=== PATIENT | male | born 1965 | race Caucasian/White ===

== ENCOUNTER 2019-01-26 09:51 | Observation (INO) | payer BC ==
[2019-01-26] MEDS ORDERED: ASPIRIN 81 MG PO STA (10:10)
--- NOTE | 2019-01-26 10:36 | ED ---
Chest Pain HPI - General Source: patient, RN notes reviewed Mode of arrival: ambulatory Limitations: no limitations <Wale Valentino - Last Filed: 01/26/19 13:58> <Clarissa Sims - Last Filed: 01/30/19 23:40> - General Chief Complaint: Chest Pain Stated Complaint: chest & arm pain Time Seen by Provider: 01/26/19 10:09 - History of Present Illness Initial Comments: This 73-year-old male presents emergency Department chief complaint of extremity pain, chest pain. Patient states that he developed sharp right-sided chest pain that is worse with deep inspiration and he feels slightly short of breath. Patient states she's never had pain like this in the past. He states he has no health problems but does not go to your primary care physician a regular basis. He is a former smoker quit 3 years ago. Patient states that he does not know any history of hypertension, hyperlipidemia or diabetes does admit that he's been having extremity pain, numbness and tingling has been progressively worsening. Patient states he also has noticed that he has had increased thirst. Patient denies any recent lab work. Patient denies any prior cardiac disease. (Wale Valentino) - Related Data Home Medications Medication Instructions Recorded Confirmed Advil Back And Body 2 tab PO HS 01/26/19 01/26/19 Ibuprofen [Motrin] 600 mg PO DAILY PRN 01/26/19 01/26/19 Previous Rx's Medication Instructions Recorded amLODIPine [Norvasc] 5 mg PO DAILY 30 Days #30 tab 01/27/19 Allergies Allergy/AdvReac Type Severity Reaction Status Date / Time No Known Allergies Allergy Verified 01/26/19 10:55 Review of Systems ROS Other: All systems not noted in ROS Statement are negative. <Wale Valentino - Last Filed: 01/26/19 13:58> ROS Other: All systems not noted in ROS Statement are negative. <Clarissa Sims - Last Filed: 01/30/19 23:40> ROS Statement: Those systems with pertinent positive or pertinent negative responses have been documented in the HPI. EKG Findings - EKG Comments: EKG Findings:: EKG interpreted by me, performed at 10:10 normal sinus rhythm rate of 67 WV 144 QRS 102 QT/QTC 372/[address] elevation or depression, normal axis. <Wale Valentino - Last Filed: 01/26/19 13:58> Past Medical History Past Medical History: No Reported History History of Any Multi-Drug Resistant Organisms: None Reported Past Surgical History: No Surgical Hx Reported Past Psychological History: No Psychological Hx Reported Smoking Status: Former smoker Past Alcohol Use History: None Reported Past Drug Use History: None Reported <Wale Valentino - Last Filed: 01/26/19 13:58> General Exam Limitations: no limitations General appearance: alert, in no apparent distress Head exam: Present: atraumatic, normocephalic, normal inspection Eye exam: Present: normal appearance, PERRL, EOMI. Absent: scleral icterus, conjunctival injection, periorbital swelling ENT exam: Present: normal exam, mucous membranes moist Neck exam: Present: normal inspection, full ROM. Absent: tenderness, meningismus, lymphadenopathy Respiratory exam: Present: normal lung sounds bilaterally, chest wall tenderness (Mild right-sided). Absent: respiratory distress, wheezes, rales, rhonchi, stridor Cardiovascular Exam: Present: regular rate, normal rhythm, normal heart sounds. Absent: systolic murmur, diastolic murmur, rubs, gallop, clicks GI/Abdominal exam: Present: soft, normal bowel sounds. Absent: distended, tenderness, guarding, rebound, rigid Neurological exam: Present: alert, oriented X3, CN II-XII intact, reflexes normal. Absent: motor sensory deficit Skin exam: Present: warm, dry, intact, normal color. Absent: rash <Wale Valentino - Last Filed: 01/26/19 13:58> Course Vital Signs 01/26/19 01/26/19 01/26/19 09:54 14:16 14:53 Temperature 98.1 F 98.0 F 98.2 F Pulse Rate 94 89 72 Respiratory 17 16 20 Rate Blood Pressure 156/96 161/104 O2 Sat by Pulse 99 98 97 Oximetry Chest Pain [facility] <Wale Valentino - Last Filed: 01/26/19 13:58> <Tylor Simsah Lul - Last Filed: 01/30/19 23:40> - [facility] EKG labs, chest x-ray and CT were obtained there is findings of COPD changes, patient is mildly hypertensive, normal troponin at this time. Patient has multiple risk factors for cardiac disease. Patient will be admitted for repeat troponin, cardiology evaluation will be started on heparin. (Wale Valentino) I was available for consultation in the emergency department. The history and physical exam were done by the midlevel provider. I was consulted for this patients care. I reviewed the case with the midlevel provider and based on their presentation of the patient, I agree with the assessment, medical decision making and plan of care as documented. I evaluated the patient myself and agree to hospital admission. Chart was dictated using [employer] dictation software. Attempts were made to correct any dictation errors however some typographical errors may persist. (Clarissa Sims) Disposition <Wale Valentino - Last Filed: 01/26/19 13:58> <Clarissa Sims - Last Filed: 01/30/19 23:40> Clinical Impression: Chest pain, COPD (chronic obstructive pulmonary disease) Disposition: ADMITTED IP TO THIS HOSP Condition: Stable
[2019-01-26 10:44] LABS: Basophils # (A) 0.1 k/uL (0-0.2); Basophils % (A) 1 %; Eosinophils # (A) 0.1 k/uL (0-0.7); Eosinophils % (A) 1 %; HCT 47.1 % (39.0-53.0); HGB 15.1 gm/dL (13.0-17.5); Lymphocytes # (A) 1.3 k/uL (1.0-4.8); Lymphocytes % (A) 15 %; MCH 27.7 pg (25.0-35.0); MCHC 32.1 g/dL (31.0-37.0); MCV 86.3 fL (80.0-100.0); Mean Platelet Volume 7.3; Monocytes # (A) 0.4 k/uL (0-1.0); Monocytes % (A) 4 %; Neutrophils # (A) 7.1 k/uL (1.3-7.7); Neutrophils % (A) 78 %; Platelet Count 331 k/uL (150-450); RBC 5.45 m/uL (4.30-5.90); RDW 13.6 % (11.5-15.5)
--- NOTE | 2019-01-26 10:53 | XR ---
EXAMINATION TYPE: XR chest 2V DATE OF EXAM: 01/26/2019 COMPARISON: 12/29/2010 TECHNIQUE: PA and lateral views submitted. HISTORY: Chest pain and cough FINDINGS: A preinflation suggests COPD. Could not exclude a less than 5% right apical pneumothorax. No overt fa ilure or pleural effusion. Heart size normal. Surgical clips in the abdomen. Vertebral body height ma intained. No consolidative pneumonia. IMPRESSION: 1. COPD. Cannot exclude a tiny less than 5% right apical pneumothorax correlate clinically.
[2019-01-26 10:58] LABS: ALT 25 U/L (21-72); AST 36 U/L (17-59); African American GFR (CKD) >90 (>60 ml/min/1.73 sqM); Albumin 4.7 g/dL (3.5-5.0); Alkaline Phosphatase 93 U/L (38-126); Anion Gap 13 mmol/L; Blood Urea Nitrogen 13 mg/dL (9-20); Calcium 10.2 mg/dL (8.4-10.2); Carbon Dioxide 22 mmol/L (22-30); Chloride 104 mmol/L (98-107); Glucose 107 mg/dL (74-99); Magnesium 2.2 mg/dL (1.6-2.3); Potassium 4.4 mmol/L (3.5-5.1); Sodium 139 mmol/L (137-145); Total Bilirubin 0.7 mg/dL (0.2-1.3); Total Protein 7.9 g/dL (6.3-8.2)
[2019-01-26 11:59] LABS: Partial Thromboplastin Time 26.2 sec (22.0-30.0); Prothrombin Time 10.3 sec (9.0-12.0)
[2019-01-26 12:04] LABS: D-Dimer 0.61 mg/L FEU (<0.60)
--- NOTE | 2019-01-26 13:21 | CT ---
EXAMINATION TYPE: CT chest angio for PE DATE OF EXAM: 01/26/2019 COMPARISON: CT chest 12/20/2010 HISTORY: chest pain / elevated d dimer CT DLP: 303.2 mGycm Automated exposure control for dose reduction was used. CONTRAST: CT Chest for pulmonary embolism performed with with IV Contrast, patient injected with 100 mL of Isov ue 370. Rudimentary reconstructions performed on an alternate workstation. FINDINGS: LUNGS: The lungs are grossly clear, there is no concerning parenchymal mass or nodule identified. A pical bullous disease likely accounts for the plain film finding. Small subpleural ground glass nodul e on axial image 40 measures 4 mm the right upper lobe. Some dependent atelectatic changes are presen t. Scattered moderate emphysematous changes are present. There is no pleural effusion or pneumothorax seen. The tracheobronchial tree is patent. MEDIASTINUM: There is satisfactory enhancement of the pulmonary artery and its branches, there is no CT evidence for pulmonary embolism. There are no greater than 1 cm hilar or mediastinal lymph nodes. No pericardial effusion is seen. AORTA: No additional significant abnormality is seen. OTHER: There is reflux of contrast material into the hepatic veins and inferior vena cava. Nonobstru ctive left renal calculus is partially visualized measuring 3 to 4 mm midpole. IMPRESSION: Emphysema. Reflux of contrast into the inferior vena cava and hepatic veins, correlate for possible r ight heart failure. Left nephrolithiasis.
[2019-01-26] MEDS ORDERED: NITROGLYCERIN SL TABS 0.4 MG TAB SUBLINGUAL PRN (13:59)
[2019-01-26] MEDS ORDERED: HEPARIN SODIUM,PORCINE 5,000 UNIT/ML 1 ML VIAL IV ONE (13:59)
[2019-01-26] MEDS ORDERED: HEPARIN SOD,PORK IN 0.45% NACL 25,000 UNIT in 0.45% NACL 1 250ML.BAG IV SCH (14:00)
[2019-01-26] MEDS ORDERED: ONDANSETRON 4 MG/2 ML VIAL IVP PRN (14:38)
[2019-01-26] MEDS ORDERED: ACETAMINOPHEN TAB 325 MG TAB PO PRN (14:38)
--- NOTE | 2019-01-26 14:39 | P.HPIM ---
History of Present Illness H&P Date: 01/26/19 Chief Complaint: chest pain This is a 53-year-old male patient who presented with complaints of chest pain. Patient reports of the chest pain started yesterday. Patient reports the feeling as sharp right-sided chest pain that is worse with deep inspiration. 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 Patient reports feeling has medical history ex-smoker in which he quit 3 years ago. Patient reports he does not follow regularly with his PCP. Patient reports that his father at 38 of massive heart attack. Chest x-ray was completed showing COPD cannot exclude a tiny less than 5% right apical pneumo correlate clinically. CTA of the chest completed showing emphysema reflux of contrast into the inferior vena cava and hepatic veins correlate for possible right heart failure left nephrolithiasis. EKG completed showing normal sinus rhythm. BNP 35 and troponin negative. Patient started on heparin drip cardiology services have been consulted. Serial troponins have been ordered. At this time patient denies shortness of breath. Patient denies nausea vomiting or diarrhea. Patient denies any urinary burning or frequency. Review of Systems Please refer to HPI otherwise unremarkable Past Medical History Past Medical History: No Reported History History of Any Multi-Drug Resistant Organisms: None Reported Past Surgical History: No Surgical Hx Reported Past Psychological History: No Psychological Hx Reported Smoking Status: Former smoker Past Alcohol Use History: None Reported Past Drug Use History: None Reported Medications and Allergies Home Medications Medication Instructions Recorded Confirmed Type Advil Back And Body 2 tab PO HS 01/26/19 01/26/19 History Ibuprofen [Motrin] 600 mg PO DAILY PRN 01/26/19 01/26/19 History Allergies Allergy/AdvReac Type Severity Reaction Status Date / Time No Known Allergies Allergy Verified 01/26/19 10:55 Physical Exam Vitals: Vital Signs Temp Pulse Resp BP Pulse Ox 01/26/19 14:16 98.0 F 89 16 98 01/26/19 09:54 98.1 F 94 17 156/96 99 Intake and Output 01/25/19 01/26/19 01/26/19 22:59 06:59 14:59 Other: Weight 68.81 kg Head normocephalic Neck supple Lungs clear to auscultation bilaterally no wheezing or crackles Heart regular rate and rhythm S1-S2, no rub or gallop Abdomen is soft nontender nondistended positive bowel sounds no hepatosplenomegaly Extremities no edema Neuro alert and orientated to 3 Results CBC & Chem 7: 01/26/19 10:25 01/26/19 10:25 Labs: Abnormal Lab Results - Last 24 Hours (Table) 01/26/19 01/26/19 Range/Units 10:25 11:10 D-Dimer 0.61 H (<0.60) mg/L FEU Glucose 107 H (74-99) mg/dL Assessment and Plan Assessment: 1. Chest pain. CT of the chest showing emphysema. Reflux of contrast into the very inferior vena cava and hepatic veins correlate for possible right heart failure. Left nephrolithiasis. Initial troponin negative. Patient started on heparin drip. Cardiology service is consulted. Troponins ordered 2. Ex-smoker. Patient quit 3 years prior 3. Family history of coronary artery disease patient reports that father at age 38 from [place] Time with Patient: Greater than 30 (Greater than 60% of the total time spent in counseling and coordination of care. I performed an examination of the patient and discussed their management with the Nurse Practitioner. I have reviewed the Nurse Practitioner's notes and agree with the documented findings and plan of care)
[2019-01-26 15:10] VITALS: BMI 25.2
[2019-01-26] MEDS: amLODIPine 5 MG TAB PO SCH (16:11)
--- NOTE | 2019-01-26 16:27 | P.CNPUL ---
History of Present Illness Consult date: 01/26/19 Requesting physician: Solis Gong Reason for consult: chest pain Chief complaint: Right-sided chest pain History of present illness: Assessment 53-year-old white male patient of Dr. Gong with no significant medical history other than former smoker, patient smoked one to 2 packs a day for 50 years, quit smoking 3 years ago. Occasional marijuana use in the past. No EtOH history. Patient presented to the emergency department on 01/26/2019 for evaluation of right upper chest pain, which was intensified with deep inspiration and coughing. His symptoms started yesterday in the morning, and the onset was acute in nature, he reports dry cough, and pain in his right upper chest, that felt like significant soreness. He also reports pain in his right arm. No fever or chills, occasional cough which is dry, no chest congestion, no wheezing. Patient also reports some increased thirst and dry mouth, has some numbness and tingling in his right arm. No swelling in the right arm or lower extremities. he takes occasional Advil or Motrin for body aches and pains. 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 EKG was done on arrival showing normal sinus rhythm, with no ST elevation or depression. Chest x-ray showed COPD, and the possibility of less than 5% right apical pneumothorax, no evidence of consolidative pneumonia. Lab work showed CBC and electrolytes and renal profile within normal limits, d-dimer was 0.61, troponin negative 1, proBNP was 35. CT chest angiogram showed emphysema, apical bullous disease, small subpleural groundglass nodule in the right upper lobe. No pleural effusion or pneumothorax was seen. No evidence of pulmonary embolism, no greater than 1 cm hilar or mediastinal lymph nodes, no pericardial effusion. Also showed nonobstructing left nephrolithiasis. Patient was started on heparin infusion and cardiology has been in to evaluate the patient, and is planning on proceeding with a stress test tomorrow Review of Systems All systems: negative Constitutional: Denies chills, Denies fever Eyes: denies blurred vision, denies pain Ears, nose, mouth and throat: Denies headache, Denies sore throat Cardiovascular: Denies chest pain, Denies shortness of breath Respiratory: Reports cough Gastrointestinal: Denies abdominal pain, Denies diarrhea, Denies nausea, Denies vomiting Musculoskeletal: Reports arm numbness/tingling, Denies myalgias Integumentary: Denies pruritus, Denies rash Neurological: Denies numbness, Denies weakness Psychiatric: Denies anxiety, Denies depression Endocrine: Denies fatigue, Denies weight change Past Medical History Past Medical History: GERD/Reflux, GI Bleed Additional Past Medical History / Comment(s): Upper GI bleed, gastric ulcer, pt states for approximately one year he has had joint pain-multiple sites and low back pain. History of Any Multi-Drug Resistant Organisms: None Reported Past Surgical History: Cholecystectomy Additional Past Surgical History / Comment(s): R hand fracture with surgery/p ins-pt thinks pins have since been removed but not sure, R antecubital injury from broken glass as 11 yr old-surgical intervention for tendons/nerves, EGD, vasectomy. Past Anesthesia/Blood Transfusion Reactions: No Reported Reaction Additional Past Anesthesia/Blood Transfusion Reaction / Comment(s): Pt thinks he may have received blood after R antecubital injury as a 11 yr old child. Smoking Status: Former smoker - Past Family History Father Family Medical History: Myocardial Infarction (PA) Additional Family Medical History / Comment(s): Father at the age of 34yrs from a massive PA. Mother Family Medical History: Cancer Additional Family Medical History / Comment(s): Mother had ovarian and breast cancer. Medications and Allergies Home Medications Medication Instructions Recorded Confirmed Type Advil Back And Body 2 tab PO HS 01/26/19 01/26/19 History Ibuprofen [Motrin] 600 mg PO DAILY PRN 01/26/19 01/26/19 History Allergies Allergy/AdvReac Type Severity Reaction Status Date / Time No Known Allergies Allergy Verified 01/26/19 10:55 Physical Exam Vitals: Vital Signs Temp Pulse Pulse Resp BP BP Pulse Ox 01/26/19 15:29 98 F 73 157/99 98 01/26/19 14:53 98.2 F 72 20 161/104 97 01/26/19 14:16 98.0 F 89 16 98 01/26/19 09:54 98.1 F 94 17 156/96 99 Intake and Output 01/26/19 01/26/1919 06:59 14:59 22:59 Other: Weight 68.81 kg GENERAL EXAM: Alert, pleasant, 53-year-old white male, comfortable in no apparent distress. HEAD: Normocephalic/atraumatic. EYES: Normal reaction of pupils, equal size. Conjunctiva pink, sclera white. NOSE: Clear with pink turbinates. THROAT: No erythema or exudates. NECK: No masses, no JVD, no thyroid enlargement, no adenopathy. CHEST: No chest wall deformity. Symmetrical expansion. Patient reports some right upper chest discomfort with deep inspiration LUNGS: Diminished air entry with no crackles, wheeze, rhonchi or dullness. CVS: Regular rate and rhythm, normal S1 and S2, no gallops, no murmurs, no rubs ABDOMEN: Soft, nontender. No hepatosplenomegaly, normal bowel sounds, no guarding or rigidity. EXTREMITIES: No clubbing, no edema, no cyanosis, 2+ pulses and upper and lower extremities. MUSCULOSKELETAL: Muscle strength and tone normal. SPINE: No scoliosis or deformity SKIN: No rashes CENTRAL NERVOUS SYSTEM: Alert and oriented -3. No focal deficits, tone is normal in all 4 extremities. PSYCHIATRIC: Alert and oriented -3. Appropriate affect. Intact judgment and insight. Results - Laboratory Findings CBC and BMP: 01/26/19 10:25 01/26/19 10:25 PT/INR, D-dimer PT 10.3 sec (9.0-12.0) 01/26/19 11:10 INR 1.0 (<1.2) 01/26/19 11:10 D-Dimer 0.61 mg/L FEU (<0.60) H 01/26/19 11:10 Abnormal lab findings: Abnormal Labs 01/26/19 01/26/19 10:25 11:10 D-Dimer 0.61 H Glucose 107 H - Diagnostic Findings Chest x-ray: report reviewed, image reviewed CT scan - chest: report reviewed, image reviewed Assessment and Plan Plan: Assessment: #1. Right-sided chest pain with deep inspiration and coughing, rule out cardiac etiology #2. Possible small 5% right apical pneumothorax, however the CTA chest did not confirm presence of pneumothorax but apical bullous disease #3. Mildly elevated d-dimer, 0.61, no evidence of pulmonary embolism on the CTA chest, no pulmonary masses, no greater than 1 cm hilar or mediastinal adenopathy. #4. COPD/emphysema, CTA chest showed apical bullous disease #5. Small subpleural groundglass nodule measuring 4 mm in the right upper lobe #6. Previous history of GI bleeding in the past #7. Osteoarthritis #8. Former history of tobacco use, early in remission for the last 3 years, used to smoke 1-2 packs a day for 50 years #9. Family history of coronary artery disease, patient's father at age of 38 from myocardial infarction Plan: Chest x-ray and CTA chest has been reviewed, CTA chest showed no evidence of pulmonary embolism, but apical bullous emphysema, which probably accounted for appearance of small pneumothorax on the chest x-ray. Presently comfortable, no acute distress, still has some right chest discomfort with deep inspiration, coughing, or wheezing, COPD does not seem to be active. Cardiology is following and plan an on doing a stress test, so far the troponin is negative, EKG without any acute ischemic changes. Vital signs are stable. Patient will need outpatient follow-up, after discharge and will need outpatient PFT. The hemodynamically stable, breathing is stable, continue to follow I performed a history & physical examination of the patient and discussed their management with my nurse practitioner, Desire Morel. I reviewed the nurse practitioner's note and agree with the documented findings and plan of care. Lung sounds are positive for diminished breath sounds. The findings and the impression was discussed with the patient. I attest to the documentation by the nurse practitioner. Time with Patient: Greater than 30
--- NOTE | 2019-01-26 19:35 | ECHOF ---
Referral Reason:chest pain MEASUREMENTS -------- HEIGHT: 165.1 cm WEIGHT: 68.5 kg BP: RVIDd: 3.2 cm (< 3.3) IVSd: 1.3 cm (0.6 - 1.1) LVIDd: 3.5 cm (3.9 - 5.3) LVPWd: 1.2 cm (0.6 - 1.1) IVSs: 1.4 cm LVIDs: 3.6 cm LVPWs: 1.3 cm LA Diam: 2.6 cm (2.7 - 3.8) LAESV Index (A-L): 20.66 ml/m Ao Diam: 3.4 cm (2.0 - 3.7) AV Cusp: 1.9 cm (1.5 - 2.6) LA Diam: 3.0 cm (2.7 - 3.8) MV EXCURSION: 14.317 mm (> 18.000) MV EF SLOPE: 77 mm/s (70 - 150) EPSS: 0.4 cm MV E Munir: 0.54 m/s MV DecT: 155 ms MV A Munir: 0.71 m/s MV E/A Ratio: 0.76 RAP: 5.00 mmHg RVSP: 25.39 mmHg FINDINGS -------- Sinus rhythm. This was a technically good study. The left ventricular size is normal. There is mild concentric left ventricular hypertrophy. Overa ll left ventricular systolic function is normal with, an EF between 55 - 60 %. The right ventricle is normal in size. The left atrial size is normal. Normal LA size by volume 22+/-6 ml/m2. The right atrial size is normal. The aortic valve is trileaflet, and appears structurally normal. No aortic stenosis or regurgitation. Mild mitral annular calcification present. Mild mitral regurgitation is present. Mild tricuspid regurgitation present. Right ventricular systolic pressure is normal at < 35 mmHg. There is no evidence of pulmonary hypertension. There is no pulmonic regurgitation present. The aortic root size is normal. There is no pericardial effusion. CONCLUSIONS -------- 1. Sinus rhythm. 2. This was a technically good study. 3. The left ventricular size is normal. 4. There is mild concentric left ventricular hypertrophy. 5. Overall left ventricular systolic function is normal with, an EF between 55 - 60 %. 6. The right ventricle is normal in size. 7. The left atrial size is normal. 8. Normal LA size by volume 22+/-6 ml/m2. 9. The right atrial size is normal. 10. The aortic valve is trileaflet, and appears structurally normal. No aortic stenosis or regurgitat ion. 11. Mild mitral annular calcification present. 12. Mild mitral regurgitation is present. 13. Mild tricuspid regurgitation present. 14. Right ventricular systolic pressure is normal at < 35 mmHg. 15. There is no evidence of pulmonary hypertension. 16. There is no pulmonic regurgitation present. 17. The aortic root size is normal. 18. There is no pericardial effusion. CYLINDER PRESS OPERATOR APPRENTICE: Yani Armando RDCS
[2019-01-26 20:22] VITALS: RESP 18
[2019-01-27] MEDS ORDERED: HEPARIN SOD,PORK IN 0.45% NACL PMX 25,000 UNIT/250 ML BAG IV ONE (01:45)
[2019-01-27] MEDS ORDERED: HEPARIN SODIUM,PORCINE 5,000 UNIT/ML 1 ML VIAL ONE (01:45)
[2019-01-27 08:14] LABS: ALT 27 U/L (21-72); AST 25 U/L (17-59); African American GFR (CKD) >90 (>60 ml/min/1.73 sqM); Albumin 4.2 g/dL (3.5-5.0); Alkaline Phosphatase 82 U/L (38-126); Anion Gap 7 mmol/L; Blood Urea Nitrogen 17 mg/dL (9-20); Calcium 9.9 mg/dL (8.4-10.2); Carbon Dioxide 27 mmol/L (22-30); Chloride 104 mmol/L (98-107); Cholesterol 182 mg/dL (<200); Glucose 108 mg/dL (74-99); HDL Cholesterol 80 mg/dL (40-60); LDL Cholesterol,Calculated 86 mg/dL (0-99); Potassium 4.6 mmol/L (3.5-5.1); Sodium 138 mmol/L (137-145); Total Bilirubin 0.4 mg/dL (0.2-1.3); Total Protein 7.4 g/dL (6.3-8.2); Triglycerides 82 mg/dL (<150)
[2019-01-27 08:20] LABS: Basophils # (A) 0.1 k/uL (0-0.2); Basophils % (A) 1 %; Eosinophils # (A) 0.2 k/uL (0-0.7); Eosinophils % (A) 3 %; HCT 50.3 % (39.0-53.0); HGB 15.9 gm/dL (13.0-17.5); Lymphocytes # (A) 1.8 k/uL (1.0-4.8); Lymphocytes % (A) 25 %; MCH 27.9 pg (25.0-35.0); MCHC 31.7 g/dL (31.0-37.0); MCV 88.2 fL (80.0-100.0); Mean Platelet Volume 8.5; Monocytes # (A) 0.4 k/uL (0-1.0); Monocytes % (A) 6 %; Neutrophils # (A) 4.4 k/uL (1.3-7.7); Neutrophils % (A) 63 %; Platelet Count 315 k/uL (150-450); RBC 5.71 m/uL (4.30-5.90); RDW 13.8 % (11.5-15.5)
--- NOTE | 2019-01-27 08:33 | XR ---
EXAMINATION TYPE: XR chest 2V DATE OF EXAM: 01/27/2019 COMPARISON: Prior chest x-ray 01/26/[address] 01/26/2019 HISTORY: Right-sided chest pain TECHNIQUE: Frontal and lateral views of the chest are obtained. FINDINGS: There are overlying cardiac leads. There is no focal air space opacity, pleural effusion, or pneumothorax seen. The cardiac silhouette size is within normal limits. The osseous structures are intact. Apical scarring present at the right lung apex. Prominent lung lines compatible with unde rlying COPD. IMPRESSION: No acute cardiopulmonary process.
[2019-01-27] MEDS ORDERED: FAMOTIDINE 20 MG TAB PO SCH (09:00)
[2019-01-27] MEDS ORDERED: ASPIRIN 81 MG PO SCH (09:00)
[2019-01-27] MEDS ORDERED: ASPIRIN 325 MG TAB PO SCH (09:00)
--- NOTE | 2019-01-27 09:58 | P.CRDCN ---
History of Present Illness History of present illness: This is a pleasant 53-year-old male past medical history significant for gastroesophageal reflux disease, upper GI bleed, gastric ulcer and former nicotine dependence. He quit smoking 3 years ago. He also has a history of alcoholism and has been sober for 10 years. He denies prior history of coronary artery disease and does not follow with a acupuncturist for any reason. His father did suffer a heart attack causing in his 30s. We have this to see him in consultation secondary to chest discomfort. He states for the last 2 days has been having a sharp pain in the right anterior chest wall that is worse with deep inspiration, movement of his right arm or coughing. He has been dry coughing for 2 days as well. He has no nasal drainage, sputum production or fever at home. The pain is reproducible on palpation. He denies associated shortness of breath, dizziness, nausea, vomiting, palpitations or diaphoresis. The discomfort does not radiate to the back, arm, neck or jaw. EKG reveals sinus mechanism with no acute ST or T wave abnormalities noted. Chest x-ray on admission is negative for an acute cardiopulmonary process with the possibility of a right upper lobe pneumothorax. CTA of the chest was obtained revealing emphysema with an apical bullous likely accounting for the plain film findings, small subpleural groundglass nodule on the axial images the right upper lobe, reflux of contrast into the inferior vena cava and hepatic veins and left nephrolithiasis. Repeat chest x-ray this morning reveals underlying COPD. Echocardiogram obtained reveals preserved LV systolic function with ejection fraction 55-60%. Laboratory data reviewed, cardiac enzymes negative 3. He takes no daily cardiac medications. At the time of my exam: CONSTITUTIONAL: Denies fever. Denies chills. EYES: Denies blurred vision. Denies vision changes. Denies eye pain. EARS, NOSE, MOUTH & THROAT: Denies headache. Denies sore throat. Denies ear pain. CARDIOVASCULAR: Complains of right-sided pleuritic chest pain. Denies shortness of breath. Denies orthopnea. Denies PND. Denies palpitations. RESPIRATORY: Complains of cough. GASTROINTESTINAL: Denies abdominal pain. Denies diarrhea. Denies constipation. Denies nausea. Denies vomiting. MUSCULOSKELETAL: Denies myalgias. INTEGUMENTARY: Denies pruitis. Denies rash. NEUROLOGIC: Denies numbness. Denies tingling. Denies weakness. PSYCHIATRIC: Denies anxiety. Denies depression. ENDOCRINE: Denies fatigue. Denies weight change. Denies polydipsia. Denies polyurina. GENITOURINARY: Denies burning, hematuria or urgency with micturation. HEMATOLOGIC: Denies history of anemia. Denies bleeding. Blood pressure 137/87 heart rate 62 afebrile maintaining oxygen saturation on room air GENERAL: This is a 53-year-old male in no apparent distress at the time of my examination. HEENT: Head is atraumatic, normocephalic. Pupils are equal, round. Sclerae anicteric. Conjunctivae are clear. Mucous membranes of the mouth are moist. Neck is supple. There is no jugular venous distention. No carotid bruit is heard. LUNGS: Clear to auscultation no wheezes, rales or rhonchi. No chest wall tenderness is noted on palpation or with deep breathing. HEART: Regular rate and rhythm without murmurs, rubs or gallops. S1 and S2 heard. ABDOMEN: Soft, nontender. Bowel sounds are heard. No organomegaly noted. EXTREMITIES: No evidence of peripheral edema and no calf tenderness noted. VASCULAR: Radial and dorsalis pedis pulses palpated, no evidence of clubbing. NEUROLOGIC: Patient is awake, alert and oriented x3. ASSESSMENT Chest pain, pleuritic. Atypical for angina. An acute coronary event has been ruled out. Significant family history of premature coronary artery disease Former nicotine dependence PLAN An acute coronary event has been ruled out. Symptoms are atypical to be related to underlying coronary artery disease however the patient does have significant family history. Therefore we will pursue stress echocardiogram to assess for stress-induced ischemia. Thank you kindly for this consultation. Nurse Practitioner note has been reviewed, I agree with a documented findings and plan of care. Patient was seen and examined. Past Medical History Past Medical History: GERD/Reflux, GI Bleed Additional Past Medical History / Comment(s): Upper GI bleed, gastric ulcer, pt states for approximately one year he has had joint pain-multiple sites and low back pain. History of Any Multi-Drug Resistant Organisms: None Reported Past Surgical History: Cholecystectomy Additional Past Surgical History / Comment(s): R hand fracture with surgery/pins-pt thinks pins have since been removed but not sure, R antecubital injury from broken glass as 11 yr old-surgical intervention for tendons/nerves, EGD, vasectomy. Past Anesthesia/Blood Transfusion Reactions: No Reported Reaction Additional Past Anesthesia/Blood Transfusion Reaction / Comment(s): Pt thinks he may have received blood after R antecubital injury as a 11 yr old child. Smoking Status: Former smoker - Past Family History Father Family Medical History: Myocardial Infarction ([place]) Additional Family Medical History / Comment(s): Father at the age of 34yrs from a massive [place]. Mother Family Medical History: Cancer Additional Family Medical History / Comment(s): Mother had ovarian and breast cancer. Medications and Allergies Home Medications Medication Instructions Recorded Confirmed Type Advil Back And Body 2 tab PO HS 01/26/19 01/26/19 History Ibuprofen [Motrin] 600 mg PO DAILY PRN 01/26/19 01/26/19 History Allergies Allergy/AdvReac Type Severity Reaction Status Date / Time No Known Allergies Allergy Verified 01/26/19 10:55 Physical Exam Vitals: Vital Signs Temp Pulse Pulse Resp BP BP BP 01/27/19 07:25 97.7 F 62 18 137/87 01/26/19 20:00 98.0 F 71 18 155/95 01/26/19 19:35 61 20 01/26/19 15:29 98 F 73 157/99 01/26/19 14:53 98.2 F 72 20 161/104 01/26/19 14:16 98.0 F 89 16 01/26/19 09:54 98.1 F 94 17 156/96 Pulse Ox 01/27/19 07:25 98 01/26/19 20:00 95 01/26/19 19:35 01/26/19 15:29 98 01/26/19 14:53 97 01/26/19 14:16 98 01/26/19 09:54 99 Intake and Output 01/26/19 01/27/19 01/27/19 22:59 06:59 14:59 Other: # Voids 1 Results 01/27/19 06:30 01/27/19 06:30 Cardiac Enzymes 01/26/19 01/26/19 01/26/19 Range/Units 10:25 10:25 16:24 AST 36 (17-59) U/L Troponin I <0.012 <0.012 (0.000-0.034) ng/mL 01/26/19 Range/Units 21:56 AST (17-59) U/L Troponin I <0.012 (0.000-0.034) ng/mL Coagulation 01/26/19 01/26/19 Range/Units 11:10 21:56 PT 10.3 (9.0-12.0) sec APTT 26.2 34.8 H (22.0-30.0) sec CBC 01/26/19 Range/Units 10:25 WBC 9.0 (3.8-10.6) k/uL RBC 5.45 (4.30-5.90) m/uL Hgb 15.1 (13.0-17.5) gm/dL Hct 47.1 (39.0-53.0) % Plt Count 331 (150-450) k/uL Comprehensive Metabolic Panel 01/26/19 Range/Units 10:25 Sodium 139 (137-145) mmol/L Potassium 4.4 (3.5-5.1) mmol/L Chloride 104 (98-107) mmol/L Carbon Dioxide 22 (22-30) mmol/L BUN 13 (9-20) mg/dL Creatinine 0.77 (0.66-1.25) mg/dL Glucose 107 H (74-99) mg/dL Calcium 10.2 (8.4-10.2) mg/dL AST 36 (17-59) U/L ALT 25 (21-72) U/L Alkaline Phosphatase 93 (38-126) U/L Total Protein 7.9 (6.3-8.2) g/dL Albumin 4.7 (3.5-5.0) g/dL Current Medications Generic Name Dose Route Start Last Admin Trade Name Freq PRN Reason Stop Dose Admin Acetaminophen 650 mg 01/26/19 14:38 01/26/19 19:54 Tylenol Tab PO 650 mg Q6HR PRN Administration Fever and/ or Mild Pain Amlodipine Besylate 5 mg 01/26/19 15:00 01/26/19 16:11 Norvasc PO 5 mg DAILY TAE Administration Aspirin 81 mg 01/27/19 09:00 Aspirin PO DAILY [facility] Famotidine 20 mg 01/27/19 09:00 Pepcid PO DAILY [facility] Nitroglycerin 0.4 mg 01/26/19 13:59 Nitrostat SUBLINGUAL Q5M PRN Chest Pain Ondansetron HCl 4 mg 01/26/19 14:38 Zofran IVP Q6HR PRN Vomiting Intake and Output 01/26/19 01/27/19 01/27/19 22:59 06:59 14:59 Other: # Voids 1 01/26/19 10:25 01/26/19 10:25
--- NOTE | 2019-01-27 10:05 | P.PN ---
Subjective Progress Note Date: 01/27/19 Days evaluation of 01/27/2019 the patient is doing well. He is hemodynamically stable. He is going to undergo a stress test. We saw him in consultation yesterday. We felt that this pain was skeletal in nature. The pain is very much reproducible upon palpating the right upper chest area. No significant cough or sputum production. He is an ex-smoker. The pain is also expressed when he coughs or he takes a deep breath. CT angiogram does not show any evidence of any pulmonary embolism. There is some limited emphysematous changes in the upper lobes more so on the right. Cardiac enzymes negative. Echocardiogram was within normal limits. Objective - Vital Signs Vital signs: Vital Signs Temp 97.7 F 01/27/19 07:25 Pulse 62 01/27/19 07:25 Resp 18 01/27/19 07:25 BP 137/87 01/27/19 07:25 Pulse Ox 98 01/27/19 07:25 Intake & Output 01/26/19 01/27/19 01/27/19 18:59 06:59 18:59 Weight 68.81 kg Other: # Voids 1 - Exam The patient appeared well nourished and normally developed. Vital signs as documented. Head exam is unremarkable. No scleral icterus or corneal arcus noted. Neck is without jugular venous distension, thyromegaly, or carotid bruits. Carotid upstrokes are brisk bilaterally. Lungs are clear to auscultation and percussion. Cardiac exam reveals the PMI to be normally sized and situated. Rhythm is regular. First and second heart sounds normal. No murmurs, rubs or gallops. Abdominal exam reveals normal bowel sounds, no masses, no organomegaly and no aortic enlargement. Extremities are nonedematous and both femoral and pedal pulses are normal. Note that the pain is reproducible upon palpating the right upper chest area. The skin over the anterior chest area is intact. Neurologically the patient is awake and alert and there is no focal neurological deficit.Examination of the skin revealed no evidence of significant rashes, suspicious appearing nevi or other concerning lesions. - Labs CBC & Chem 7: 01/27/19 06:30 01/27/19 06:30 Labs: Abnormal Lab Results - Last 24 Hours (Table) 01/26/19 01/26/19 01/26/19 Range/Units 10:25 11:10 21:56 APTT 34.8 H (22.0-30.0) sec D-Dimer 0.61 H (<0.60) mg/L FEU Glucose 107 H (74-99) mg/dL HDL Cholesterol (40-60) mg/dL 01/27/19 01/27/19 Range/Units 06:30 06:30 APTT 59.3 H (22.0-30.0) sec D-Dimer (<0.60) mg/L FEU Glucose 108 H (74-99) mg/dL HDL Cholesterol 80 H (40-60) mg/dL Assessment and Plan Plan: #1. Right-sided chest pain with deep inspiration and coughing, pain is very much reproducible upon palpating the area. It moves across the upper chest area. Workup has been negative including a negative CT angiogram. Normal echocardiogram. Normal cardiac enzymes. Awaiting a cardiac stress test with a low pretest probability for CAD. #2. Small right apical bullous. This is related to smoking. No pneumothorax. #3. Mildly elevated d-dimer, 0.61, no evidence of pulmonary embolism on the CTA chest, no pulmonary masses, no greater than 1 cm hilar or mediastinal adenopathy. #4. COPD/emphysema, CTA chest showed apical bullous disease #5. Small subpleural groundglass nodule measuring 4 mm in the right upper lobe #6. Previous history of GI bleeding in the past #7. Osteoarthritis #8. Former history of tobacco use, early in remission for the last 3 years, used to smoke 1-2 packs a day for 50 years #9. Family history of coronary artery disease, patient's father at age of 38 from myocardial infarction Plan Patient was reassured. Complete the cardiac stress test. Discharge home with assistance is negative.
[2019-01-27] MEDS: amLODIPine 5 MG TAB PO SCH (11:37)
[2019-01-27 11:53] VITALS: BP 128/88; PULSE 93; TEMP 98.1
--- NOTE | 2019-01-27 14:54 | P.DS ---
Providers Date of admission: 01/26/19 14:00 Expected date of discharge: 01/27/19 Attending physician: Solis Gong Consults: 01/26/19 13:59 Consult Physician Urgent Consulting Provider: Dax Henning Consult Reason/Comments: chest pain Do you want consulting provider notified?: Yes 01/26/19 14:42 Consult Physician Routine Consulting Provider: Sarai Carroll Consult Reason/Comments: COPD, chest x-ray result Do you want consulting provider notified?: Yes Primary care physician: Solis Faride[facility] Course: Discharge diagnosis 1. Chest pain. CT of the chest showing emphysema. Reflux of contrast into the very inferior vena cava and hepatic veins correlate for possible right heart failure. Left nephrolithiasis. Initial troponin negative. Patient started on heparin drip. Cardiology service is consulted. Troponins negative times 3. Echo revealed EF between 55-60%. Stress test completed. Discussed with cardiology [facility] patient has been cleared for discharge. 2. Ex-smoker. Patient quit 3 years prior 3. Family history of coronary artery disease patient reports that father at age 38 from [place] 4. Small right apical bolus. Patient evaluated by pulmonary, likely related to stop smoking no pneumothorax. 5. COPD/emphysema. Patient will follow up with pulmonary outpatient. 6. Small subpleural groundglass nodule measuring 4 mm in the right upper lobe. Patient was evaluated by pulmonary, will follow-up outpatient. 7. Essential hypertension. [facility] Hospital Course This is a 53-year-old male patient who presented with complaints of chest pain. Patient reports of the chest pain started yesterday. Patient reports the feeling as sharp right-sided chest pain that is worse with deep inspiration. 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 Patient reports feeling has medical history ex-smoker in which he quit 3 years ago. Patient reports he does not follow regularly with his PCP. Patient reports that his father at 38 of massive heart attack. Chest x-ray was completed showing COPD cannot exclude a tiny less than 5% right apical pneumo correlate clinically. CTA of the chest completed showing emphysema reflux of contrast into the inferior vena cava and hepatic veins correlate for possible right heart failure left nephrolithiasis. EKG completed showing normal sinus rhythm. BNP 35 and troponin negative. Patient started on heparin drip cardiology services have been consulted. Serial troponins have been ordered. At this time patient denies shortness of breath. Patient denies nausea vomiting or diarrhea. Patient denies any urinary burning or frequency. 01/27/2018, patient was seen resting comfortably. Patient states he no longer has chest pain. Stress test and echo were completed. Patient was evaluated by pulmonology and cardiology and cleared by both services. Patient will follow up with pulmonary outpatient. Patient was started on Norvasc for essential hypertension. Advised patient the importance of following up with PCP and consulting providers for further management of care. Patient Condition at Discharge: Stable Plan - Discharge Summary Discharge Rx Participant: No New Discharge Prescriptions: New amLODIPine [Norvasc] 5 mg PO DAILY 30 Days #30 tab Continue Ibuprofen [Motrin] 600 mg PO DAILY PRN PRN Reason: Pain Advil Back And Body 2 tab PO HS Discharge Medication List Advil Back And Body 2 tab PO HS 01/26/19 [History] Ibuprofen [Motrin] 600 mg PO DAILY PRN 01/26/19 [History] amLODIPine [Norvasc] 5 mg PO DAILY 30 Days #30 tab 01/27/19 [Rx] Follow up Appointment(s)/Referral(s): Solis Gong MD [Primary Care Provider] - 1-2 days Phil Mcdowell MD [STAFF PHYSICIAN] - 02/09/19 1:15 pm (Arrive ten minutes early ) Sarai Carroll MD [STAFF PHYSICIAN] - 02/11/19 3:00 pm ([facility]) Patient Instructions/Handouts: Chest Pain (DC) Activity/Diet/Wound Care/Special Instructions: Activity as tolerated. Heart healthy diet Discharge Disposition: HOME SELF-CARE
--- NOTE | 2019-01-27 19:39 | P.STRESS ---
- Stress Test Note Stress Test Results/Findings: Exam Performed: stress echo exercise Exam Date: 01/27/19 Reason for Exam: CP Height: 5 ft 5 in Weight: 68.81 kg Protocol: Stress Echo Stage: III Duration of Exercise: 9 Resting Heart Rate: 81 Resting Blood Pressure: 134/62 Maximum Achieved Heart Rate: 146 Maximum Achieved Blood Pressure: 194/81 85% PMHR: 140 100% PMHR: 165 METS: 10.3 Technologist Comment: Stress Test Results/Findings: This is a 53-year-old gentleman with a history of ischemic heart disease in the family and smoking history admitted to the hospital with chest pains. Stress data : Baseline EKG showed sinus rhythm with normal FL interval and QRS duration. Blood pressure at rest is 134/62 with pulse rate of 81. Patient walked on the Guillermo protocol for 9 minutes achieving a maximum heart rate of 146 with a blood pressure 194/81. EKGs taken during and after exercise did not reveal any significant changes from the baseline. Patient did not experience any chest pain. Echo data: Baseline echo images showed normal wall motion and thickening. Exercise echo images showed augmentation of wall motion and thickening in all the segments. Final impression: #1. Negative stress test #2. Negative stress echo.
--- NOTE | 2019-01-28 11:24 | ECHOS ---
Stress Test Results/Findings: Exam Performed: stress echo exercise Exam Date: 01/27/19 Reason for Exam: CP Height: 5 ft 5 in Weight: 68.81 kg Protocol: Stress Echo Stage: III Duration of Exercise: 9 Resting Heart Rate: 81 Resting Blood Pressure: 134/62 Maximum Achieved Heart Rate: 146 Maximum Achieved Blood Pressure: 194/81 85% PMHR: 140 100% PMHR: 165 METS: 10.3 Technologist Comment: Stress Test Results/Findings: This is a 53-year-old gentleman with a history of ischemic heart disease in the family and smoking history admitted to the hospital with chest pains. Stress data : Baseline EKG showed sinus rhythm with normal MS interval and QRS duration. Blood pressure at rest is 134/62 with pulse rate of 81. Patient walked on the Guillermo protocol for 9 minutes achieving a maximum heart rate of 146 with a blood pressure 194/81. EKGs taken during and after exercise did not reveal any significant changes from the baseline. Patient did not experience any chest pain. Echo data: Baseline echo images showed normal wall motion and thickening. Exercise echo images showed augmentation of wall motion and thickening in all the segments. Final impression: #1. Negative stress test #2. Negative stress echo. SHARIF
== END 2019-01-27 17:02 | disposition home or self-care (01) ==
LOC: EC 09:51 → 1SOBS 14:00
PROVIDERS: ADMIT Internal Medicine; ATTEND Internal Medicine
DX: R07.89 Other chest pain (principal); J43.9 Emphysema, unspecified; I10 Essential (primary) hypertension; R79.89 Other specified abnormal findings of blood chemistry; K21.9 Gastro-esophageal reflux disease without esophagitis; M19.90 Unspecified osteoarthritis, unspecified site; R91.1 Solitary pulmonary nodule; M79.602 Pain in left arm; M79.601 Pain in right arm; R20.0 Anesthesia of skin; R20.2 Paresthesia of skin; R63.1 Polydipsia; N20.0 Calculus of kidney; R68.2 Dry mouth, unspecified; M54.5 Low back pain; F10.21 Alcohol dependence, in remission; Z79.1 Long term (current) use of non-steroidal anti-inflammatories (NSAID); Z87.891 Personal history of nicotine dependence; Z98.52 Vasectomy status; Z87.828 Personal history of other (healed) physical injury and trauma; Z87.11 Personal history of peptic ulcer disease; Z90.49 Acquired absence of other specified parts of digestive tract; Z80.3 Family history of malignant neoplasm of breast; Z80.41 Family history of malignant neoplasm of ovary; Z82.49 Family history of ischemic heart disease and other diseases of the circulatory system
CPT/HCPCS: 93005 ×2; 96365; 96366 ×2; 99285; 36415; 93306; 93351; 85379; 83880; 80061; 80053 ×2; 83690; 83735; 84484; 85025 ×2; 85610; 85730 ×2; 71046 ×2; 71275; G0378 ×2; J1644 ×3; Q9967

== ENCOUNTER → 2023-02-14 | Outpatient (CLI) | payer OTHER ==
[2023-02-14 16:15] LABS: ALT 26 U/L (10-49); AST 22 U/L (14-35); Albumin 4.5 d/dL (3.8-4.9); Albumin/Globulin Ratio 1.73 Ratio (1.60-3.17); Alkaline Phosphatase 85 U/L (41-126); BUN/Creat Ratio 17.22 Ratio (12.00-20.00); Blood Urea Nitrogen 15.5 mg/dL (9.0-27.0); Carbon Dioxide 27.2 mmol/L (21.6-31.8); Chloride 101 mmol/L (96-109); Chol/HDL Ratio 3.99 Ratio; Globulin 2.6 d/dL (1.6-3.3); Glucose 70 mg/dL (70-110); LDL Cholesterol,Calculated 138.3 mg/dL (0.0-131.0); Potassium 4.9 mmol/L (3.5-5.5); Prostate Specific Antigen 0.69 ng/mL (0.000-4.500); Rheumatoid Factor, Qnt <15 IU/mL (0-15); Sodium 139 mmol/L (135-145); Total Bilirubin 0.3 mg/dL (0.3-1.2); Total Protein 7.1 d/dL (6.2-8.2); Uric Acid 5.1 mg/dL (3.7-8.7)
== END | disposition home or self-care (01) ==
LOC: LABWHC1 09:37
PROVIDERS: ATTEND Internal Medicine
DX: Z12.5 Encounter for screening for malignant neoplasm of prostate (principal); I10 Essential (primary) hypertension; M25.50 Pain in unspecified joint; R53.83 Other fatigue
CPT/HCPCS: 36415; 80053; 80061; 84153; 84443; 84550; 85652; 86038; 86039; 86431